=== PATIENT | female | born 1995 | race African-American/Black ===

== ENCOUNTER 2019-04-08 15:35 | Emergency (ER) | payer OTHER ==
[2019-04-08 16:08] VITALS: BMI 20.4
--- NOTE | 2019-04-08 16:18 | PDOC ---
History of Present Illness - General Stated Complaint: SYNCOPE Time Seen by Provider: 04/08/19 16:18 - History of Present Illness Initial Comments: 04/08/19 16:18 23yo F no PMH presents from home c/o headache, nausea, lightheadedness, and syncope today. Pt was in [facility] yesterday. Pt woke up this AM not feeling well, w/ gradual onset of headache and nausea. Headache R-sided frontal, gradual onset, intermittent, improving, not worse/better with anything, has not tried medications, similar to past headaches that resolved with advil. 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 Per coworkers who witnessed incident, pt was standing and slowly slumped/fell to floor but did not hit head. Pt was out for a few minutes then woke up on own confused for a few minutes. Pt was able to stand up on own. Denies urinary or stool incontinence, seizure-like movements, tongue-biting, CP, SOB, palpitations, vertigo, numbness/tingling, weakness. Since the syncope, nausea and headache have continued and pt has vomited once more, NBNB. All sx have been improving since syncope, but pt still endorses nausea, headache, and lightheadedness. Hx of syncope 1x >15yrs ago, unknown cause. Mother sick vomiting the last few days. 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 Denies recent travel, recent surgeries, hemoptysis, hx PE/DVT, calf tenderness, leg swelling, FHx sudden cardiac or early CAD, malignancy, head injury, other injuries from syncope , abdominal pain, back pain, dysuria, blood in stool, D/C, F/C, vision changes. Denies , LMP 3-4wks ago, on Xalene hormone patch for control. Past History - Past Medical History Allergies/Adverse Reactions: Allergies Allergy/AdvReac Type Severity Reaction Status Date / Time No Known Allergies Allergy Verified 04/08/19 17:04 Home Medications: Ambulatory Orders NK [No Known Home Medication] 04/08/19 COPD: No - Psycho Social/Smoking Cessation Hx Smoking History: Never smoked Review of Systems - Review of Systems Comments:: 04/08/19 19:05 Constitutional: Negative for chills, fever, fatigue. HENT: Negative for sore throat, rhinorrhea, congestion. Eyes: Negative for visual disturbance. Respiratory: Negative for shortness of breath, cough, and wheezing. Cardiovascular: Negative for chest pain, palpitations, and leg swelling. Gastrointestinal: Positive for nausea and vomiting. Negative for abdominal pain , blood in stool, constipation, diarrhea. Genitourinary: Negative for dysuria, flank pain, and hematuria. Musculoskeletal: Negative for myalgias, back pain, and neck pain. Skin: Negative for rash. Neurological: Positive for light-headedness and syncope. Negative for vertigo, weakness, numbness and headaches. Psychiatric/Behavioral: Negative for behavioral problems and confusion. *Physical Exam - Vital Signs Last Vital Signs Temp Pulse Resp BP Pulse Ox 98.4 F 67 18 117/82 99 04/08/19 15:36 04/08/19 15:36 04/08/19 15:36 04/08/19 15:36 04/08/19 15:36 - Physical Exam Comments: 04/08/19 17:04 Gen: Alert, NAD, comfortable-appearing. HEENT: PERRL, EOMI, MMM, NCAT. No conjunctival pallor. Sclera are non-icteric. Oropharynx is clear. CV: Regular rate and rhythm. No murmurs, rubs, or gallops. PULM: No resp distress. CTAB, no wheezes, rales, or rhonchi. ABD: soft, NT/ND, no rebound tenderness or guarding, no CVA tenderness. BACK: No TTP of c/t/l-spine. No step-offs or deformities. MSK: No bony deformities. 2+ pulses in all extremities. NEURO: AAOx3. PERRL. CN 2-12 intact. 5/5 strength in all extremities. Sensation to light touch intact in all extremities. No pronator drift. No dysmetria. No dysdiadochokinesia. No abnormal nystagmus. No skew deviation. Normal gait. EXTREMITIES: No cyanosis. No clubbing. No edema. No calf tenderness. PSYCH: Normal mood and thought pattern. SKIN: Warm and dry. Normal capillary refill. No rashes. No jaundice. Heart Score/ECG Review - ECG Impressions Comment:: 04/08/19 19:06 NSR, 76bpm, QTc 438ms, TWIs in V2/V3, Q wave in V1/V2. No evidence of arrythmia , ischemia, Wpga-Uoyiwhdks-Kemdc (delta wave), Tysu-Pofkez-Pomrnf (shortened ME interval), Brugada syndrome, long or short QT interval, HOCM. No prior EKGs for comparison. ED Treatment Course - LABORATORY CBC & Chemistry Diagram: 04/08/19 17:20 04/08/19 17:20 Medical Decision Making - Medical Decision Making 04/08/19 16:18 23yo F no PMH presents from home c/o headache, nausea, lightheadedness, and syncope today. Pt was in [facility] yesterday. Pt woke up this AM not feeling well, w/ gradual onset of headache and nausea. Headache R-sided frontal, gradual onset, intermittent, improving, not worse/better with anything, has not tried medications, similar to past headaches that resolved with advil. 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 Per coworkers who witnessed incident, pt was standing and slowly slumped/fell to floor but did not hit head. Pt was out for a few minutes then woke up on own confused for a few minutes. Pt was able to stand up on own. Denies urinary or stool incontinence, seizure-like movements, tongue-biting, CP, SOB, palpitations, vertigo, numbness/tingling, weakness. Since the syncope, nausea and headache have continued and pt has vomited once more, NBNB. All sx have been improving since syncope, but pt still endorses nausea, headache, and lightheadedness. Hx of syncope 1x >15yrs ago, unknown cause. Mother sick vomiting the last few days. 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 Denies recent travel, recent surgeries, hemoptysis, hx PE/DVT, calf tenderness, leg swelling, FHx sudden cardiac or early CAD, malignancy, head injury, other injuries from syncope , abdominal pain, back pain, dysuria, blood in stool, D/C, F/C, vision changes. Denies , LMP 3-4wks ago, on Xalene hormone patch for control. Hemodynamically stable, afebrile. Headache most consistent with tension headache or dehydration - give IVF and tylenol; presentation not concerning for emergent etiology such as SAH or meningitis. Presyncope most likely vasovagal or orthostatic due to presentation and lack of hx. Low concern for cardiac etiology due to lack of CP, palpitations, FHx, or syncope, and pre-trop HEART score 0, but assess and r/o ACS/DE or arrythmias (WPW, LGL, Brugada, long/short QT interval, HOCM) with cardiac profile x1 and EKG. Wells 0, cannot r/o PE with PERC due to hormonal BC patch use, but very low concern due to lack of other RFs , tachycardia, SOB, CP, or s/s of DVT - no further testing indicated for PE. Also consider infectious etiologies, anemia, , or metabolic derangements - r/o w/CMP, CBC, and serum . No seizure-like activity. Nausea and vomiting with sick contact most consistent with viral GI illness. Benign abdominal exam and lack of fever or D/C not concerning for emergent GI etiology such as appendicitis or SBO - obtain labs but no indication for CTAP at this time. -EKG -Labs: CBC, CMP, cardiac profile, UPreg -1L IVF -IV Tylenol for headache -Zofran for nausea -Dispo: likely d/c home pending workup 04/08/19 18:32 Pt vomited 1x in the ED but is feeling much better now s/p tylenol, zofran, and IVF. Denies all sx including nausea, abdominal pain, headache, and lightheadedness. EKG reviewed. Labs reviewed. No concerning findings. No evidence of arrythmia, ischemia, Zirc-Eipedvfdr-Sbsff (delta wave), Lown- Ganong-Barron (shortened ME interval), Brugada syndrome, long or short QT interval, HOCM. 04/08/19 19:00 Signed out to oncoming team. Will d/c home once IVF finished. 04/08/19 19:07 Discharge - Discharge Information Problems reviewed: Yes Clinical Impression/Diagnosis: Syncope, Vomiting Condition: Improved Disposition: HOME - Admission No - Follow up/Referral Referrals: [facility] [place] [Provider Group] - Patient Discharge Instructions Patient Printed Discharge Instructions: DI for Vomiting -- Adult, DI for Syncope in Adults (Fainting), DI for Viral Gastroenteritis -- Adult Additional Instructions: You have been seen in the Emergency Department for your vomiting, headache, and fainting spell. Your EKG and labs show no signs concerning for an emergent condition such as a heart attack, abnormal heart rhythm, anemia, or infection. The cause of your episode is uncertain but it was most likely what's called vasovagal syncope - see below for more information on this. The cause of your headache, nausea, and vomiting is also uncertain but it is most likely due to dehydration and a viral illness. Your symptoms improved with tylenol and hydration. At this time, it's most important to stay hydrated. We have given you a referral to an internal medicine clinic to get a primary care doctor. Call the office and set up a follow-up appointment within 1 week. Return to the ED immediately if you experience chest pain, difficulty breathing , dizziness, fainting, vomiting, or any other new or worsening symptom. Vasovagal syncope (fainting): To remain conscious, a supply of oxygen-rich blood must be pumped to the brain without interruption. If the brain is deprived of this blood supply, even for a brief period, loss of consciousness (passing out) will occur. One of the most common types of syncope is called vasovagal syncope, which is the most common cause of reflex syncope. A variety of conditions can trigger vasovagal syncope, including physical or psychological stress, dehydration, bleeding, or pain. The heart rate may slow dramatically at the time of the faint, and the blood vessels (mainly the veins) in the body expand, causing blood to pool in the lower extremities and the bowels, resulting in less blood return to the heart and a low blood pressure (hypotension). This causes a decrease in blood flow to the brain. In some cases, vasovagal syncope is triggered by an emotional response to a stimulus, such as fear of injury, heat exposure, the sight of blood, or extreme pain. In other cases, it is caused by abnormal nervous system responses to activities such as urinating, having a bowel movement, coughing, or swallowing. In still other cases, no trigger can be identified. In most cases of vasovagal syncope, you have some warning that you are near fainting. These signs include dizziness, feeling hot or cold, nausea, pale skin , "tunnel-like" vision, disturbance of hearing, and profuse sweating. After the episode, symptoms may continue because of continued low blood pressure. Some people feel extremely tired. - Post Discharge Activity Work/Back to School Note: Back to Work
[2019-04-08] MEDS ORDERED: ONDANSETRON 4 MG/2 ML VIAL IVPUSH ONE (16:38)
[2019-04-08] MEDS ORDERED: SODIUM CHLORIDE 0.9% 500 ML INFUS.BAG IV ONE (16:38)
[2019-04-08] MEDS ORDERED: ACETAMINOPHEN 1000 MG/100 ML VIAL (NON FORMULARY) IVPB ONE (16:49)
[2019-04-08] MEDS ORDERED: ONDANSETRON 4 MG/2 ML VIAL ONE (17:20)
[2019-04-08] MEDS ORDERED: ACETAMINOPHEN INJECTION 100 ML IVPB ONE (17:20)
[2019-04-08 17:30] LABS: BASO % 0.4 % (0-2.0); EOS % 0.5 % (0-4.5); HEMATOCRIT 33.3 % (32.4-45.2); HEMOGLOBIN 10.5 GM/dL (10.7-15.3); LYMPH % 16.6 % (8-40); MCH 26.7 pg (25.7-33.7); MCHC 31.6 g/dl (32.0-36.0); MEAN CELL VOLUME 84.4 fl (80-96); MEAN PLT VOLUME 8.7 fl (7.5-11.1); MONO % 5.4 % (3.8-10.2); NEUT % 77.1 % (42.8-82.8); PLATELET COUNT 297 K/MM3 (134-434); RBC 3.94 M/mm3 (3.60-5.2); RDW 16.7 % (11.6-15.6)
[2019-04-08 17:58] LABS: ALBUMIN 3.8 g/dl (3.4-5.0); BILIRUBIN,TOTAL 0.2 mg/dL (0.2-1); BLOOD UREA NITROGEN 16.1 mg/dL (7-18); CALCIUM 9.2 mg/dL (8.5-10.1); CREATININE 0.9 mg/dL (0.55-1.3); TOT PROT 7.4 g/dl (6.4-8.2)
--- NOTE | 2019-04-08 19:02 | PDOC ---
Documentation entered by Rahel Bullard SCRIBE, acting as scribe for Lucero Leavitt MD. Lucero Leavitt MD: This documentation has been prepared by the Juan Miguel moss Xhesika, SCRIBE, under my direction and personally reviewed by me in its entirety. I confirm that the documentation accurately reflects all work, treatment, procedures, and medical decision making performed by me. Attending Attestation - Resident Resident Name: Skylar Nails - ED Attending Attestation I have performed the following: I have examined & evaluated the patient, The case was reviewed & discussed with the resident, I agree w/resident's findings & plan, Exceptions are as noted - HPI HPI: 04/08/19 18:30 23 year old female with no significant PMH, who presents to the emergency department for headache, nausea, lightheadedness s/p syncope. Pt notes she woke up this morning with a headache and not feeling well. does have sick contact of her mom who was vomiting few days ago. today she was feeling nauseas. 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 no cp no sob. no h/o pe or dvt. no recent travel. no recent leg pain. no h/o sudden collapse or syncope during sports. . Patient denies tongue biting or any seizure activity. Pt notes her mom had food poisoning yesterday, and she feels the same way. Patient notes her LMP was 3 weeks ago. Allergies: NKDA 04/08/19 18:58 - Physicial Exam PE: 04/08/19 19:00 awake alert lungs clear bilat heart rrr no mrg abd sof tory nd ext wwp no edema. no calf tenderness. nuero alert oriented x 3. speech clear. - Medical Decision Making 04/08/19 19:01 23 yo F with syncope today, sick contact. will hydrate. r/o or infection reassess. pt with labs normal ucg negative. given ivf and zofran. feels improved. tolerating PO. dc home.
[2019-04-08 19:52] VITALS: BP 118/66; PULSE 63; TEMP 98.3
--- NOTE | 2019-04-09 14:09 | EKG ---
Test Reason : Blood Pressure : / mmHG Vent. Rate : 076 BPM Atrial Rate : 076 BPM P-R Int : 192 ms QRS Dur : 078 ms QT Int : 390 ms P-R-T Axes : 073 063 046 degrees QTc Int : 438 ms NORMAL SINUS RHYTHM SEPTAL INFARCT , AGE UNDETERMINED ABNORMAL ECG NO PREVIOUS ECGS AVAILABLE Confirmed by KG MURRY, CANDIS ([id number]) on 04/09/2019 2:08:58 PM Referred By: Confirmed By:CANDIS SAUL MD
== END 2019-04-08 20:10 | disposition home or self-care (01) ==
LOC: JER 15:35
PROC: 3E033NZ Introduction of Analgesics, Hypnotics, Sedatives into Peripheral Vein, Percutaneous Approach (ICD-10-PCS; principal; 2019-04-08)
PROC: 3E033GC Introduction of Other Therapeutic Substance into Peripheral Vein, Percutaneous Approach (ICD-10-PCS; 2019-04-08)
PROC: 3E0337Z Introduction of Electrolytic and Water Balance Substance into Peripheral Vein, Percutaneous Approach (ICD-10-PCS; 2019-04-08)
DX: R55 Syncope and collapse (principal); R11.10 Vomiting, unspecified
CPT/HCPCS: 36415; 80053; 82550; 82553; 84443; 84484; 84703; 85025; 93005; 93010; 99283-25; J0131